=== PATIENT | female | born 1945 | race Caucasian/White ===

== ENCOUNTER → 2019-03-05 | Outpatient (CLI) | payer MEDICARE ==
--- NOTE | 2019-03-05 23:38 | BD ---
EXAMINATION TYPE: Axial Bone Density DATE OF EXAM: 03/05/2019 COMPARISON: 2001 CLINICAL HISTORY: 73-year-old female postmenopausal screening without HRT Height: 5'2 1/2 Weight: 165 FRAX RISK QUESTIONS: Secondary Osteoporosis: 3. Menopause before 45: y RISK FACTORS HISTORY OF: Postmenopausal woman: y MEDICATIONS: Thyroid Medications: Which medication: Synthroid How Lon years Additional Medications: Additional History: EXAM MEASUREMENTS: Bone mineral densitometry was performed using the [employer] System. Bone mineral density as measured about the Lumbar spine is: ----- L1-L4(G/cm2): 0.916 T Score Values are as follows: ----- L2: -2.6 ----- L3: -2.4 ----- L4: -1.7 ----- L1-L4: -2.2 Bone mineral density has: Decreased -7.0 % since study of: 11/23/2001 Bone mineral density about the R hip (g/cm2): 1.047 Bone mineral density about the L hip (g/cm2): 0.965 T Score values are as follows: -----R Neck: 0.1 -----L Neck: -0.5 -----R Total: 0.6 -----L Total: 0.9 Bone mineral density has: Decreased 3.3% since study of: 11/23/2001 IMPRESSION: Osteopenia (T Score between -2.5 and -1). There is slightly increased risk of fracture and the patient may be considered for treatment. Re-Screen 2-5 years. NOTE: T-SCORE=SD OF THE YOUNG ADULT MEAN.
--- NOTE | 2019-03-06 13:18 | MM ---
Reason for exam: screening (asymptomatic). Last mammogram was performed 4 years and 2 months ago. History: Patient is postmenopausal. Benign stereotactic core biopsy of the right breast, November 27, 2004. Took estrogen for 18 years. Physical Findings: A clinical breast exam by your physician is recommended on an annual basis and results should be correlated with mammographic findings. MG 3D Screening Mammo W/Cad Bilateral CC and MLO view(s) were taken. Prior study comparison: January 15, 2015, left breast MG work up mamm w CAD LT. January 08, 2015, bilateral MG screening mammo w CAD. The breast tissue is heterogeneously dense. This may lower the sensitivity of mammography. Right biopsy marker noted. No significant changes when compared with prior studies. ASSESSMENT: Negative, BI-RAD 1 RECOMMENDATION: Routine screening mammogram of both breasts in 1 year.
== END | disposition home or self-care (01) ==
LOC: RADMAMWWP 10:05
PROVIDERS: ATTEND Family Medicine
DX: Z12.31 Encounter for screening mammogram for malignant neoplasm of breast (principal); M85.80 Other specified disorders of bone density and structure, unspecified site; Z78.0 Asymptomatic menopausal state
CPT/HCPCS: 77063; 77067; 77080

== ENCOUNTER → 2019-10-19 | Outpatient (CLI) | payer MEDICARE ==
--- NOTE | 2019-10-23 11:07 | MR ---
EXAMINATION TYPE: MR knee RT wo con DATE OF EXAM: 10/19/2019 COMPARISON: None HISTORY: Rt knee pain, fall 1 yr ago TECHNIQUE: Multiplanar, multisequence images of the knee is performed without IV contrast. FINDINGS: MEDIAL MENISCUS: There is increased signal within the posterior horn medial meniscus. Communication w ith an articular surface is not evident. Anterior horn medial meniscus appears intact. LATERAL MENISCUS: Minimal increased signals in the anterior horn lateral meniscus. Posterior lateral meniscus appears intact. CRUCIATE LIGAMENTS: The anterior and posterior cruciate ligaments are intact and unremarkable. COLLATERAL LIGAMENTS: The medial collateral ligament and lateral collateral ligament complex are inta ct and unremarkable. EXTENSOR MECHANISM: Visualized quadriceps and patellar tendons are intact. EFFUSION: There is a large joint effusion present. POPLITEAL CYST: No popliteal/frost cyst. CARTILAGE: There is loss of the articular cartilage along the medial compartment. Subchondral changes may be present. Osteoarthritic degenerative change be considered. There is thinning of the articular cartilage of the lateral compartment. BONE MARROW SIGNAL: There is increased signal within the medial tibial plateau and medial femoral con dyle compatible with contusion. OTHER: No additional significant abnormality is appreciated. IMPRESSION: 1. Internal derangement posterior horn medial meniscus anterior horn lateral meniscus. 2. Contusion medial tibial plateau and medial femoral condyle. 3. Large joint effusion.
== END | disposition home or self-care (01) ==
LOC: RADMRIMAIN 16:49
PROVIDERS: ATTEND Orthopaedic Surgery Sports Medicine
DX: S80.01XA Contusion of right knee, initial encounter (principal); M17.0 Bilateral primary osteoarthritis of knee; E03.8 Other specified hypothyroidism; N18.9 Chronic kidney disease, unspecified

== ENCOUNTER → 2020-08-12 | Outpatient (CLI) | payer MEDICARE ==
[2020-08-12 11:37] LABS: HCT 42.1 % (34.0-46.0); HGB 13.2 gm/dL (11.4-16.0); MCHC 31.5 g/dL (31.0-37.0); Mean Platelet Volume 7.3; Platelet Count 258 k/uL (150-450); RBC 4.57 m/uL (3.80-5.40); WBC 5.2 k/uL (3.8-10.6)
[2020-08-12 12:26] LABS: Partial Thromboplastin Time 24.9 sec (22.0-30.0); Prothrombin Time 10.1 sec (9.0-12.0)
[2020-08-12 17:16] LABS: Hemoglobin A1C 5.9 % (4.0-6.0)
[2020-08-12 21:40] LABS: African American GFR (CKD) 57.3 (60.0-200.0); Anion Gap 9.8 mmol/L (4.00-12.00); BUN/Creat Ratio 22.73 Ratio (12.00-20.00); Calcium 10.4 mg/dL (8.7-10.3); Carbon Dioxide 26.2 mmol/L (21.6-31.8); Non-African American GFR(CKD) 49.4 (60.0-200.0); Potassium 5.4 mmol/L (3.5-5.5); Total Bilirubin 0.5 mg/dL (0.3-1.2); Total Protein 7.5 g/dL (6.2-8.2)
[2020-08-12 22:15] LABS: Albumin 5.2 g/dL (3.80-4.90); Albumin/Globulin Ratio 2.26 (1.60-3.17); Globulin 2.3 g/dL (1.6-3.3)
== END | disposition home or self-care (01) ==
LOC: LABWHC1 09:34
PROVIDERS: ATTEND Orthopaedic Surgery
DX: Z01.818 Encounter for other preprocedural examination (principal); D64.9 Anemia, unspecified; M19.90 Unspecified osteoarthritis, unspecified site
CPT/HCPCS: 36415; 80053; 83036; 85027; 85610; 85730; 86850; 86900; 86901; 87070; 93005

== ENCOUNTER 2020-11-19 10:48 | Emergency (ER) | payer MEDICARE ==
[2020-11-19] MEDS ORDERED: LIDOCAINE 1%-EPI 1:100,000 20 ML VIAL SQ STA (12:06)
--- NOTE | 2020-11-19 12:11 | ED ---
General Adult HPI - General Chief complaint: Fall Stated complaint: trip & fall/knee lac Time Seen by Provider: 11/19/20 11:59 Source: patient Mode of arrival: ambulatory Limitations: no limitations - History of Present Illness Initial comments: Dictation was produced using [employer] dictation software. please excuse any grammatical, word or spelling errors. This patient was cared for during a federal and state declared state of emergency secondary to Covid 19 Chief Complaint: 75-year-old female presents today with right knee laceration History of Present Illness: 75-year-old female she states that at 10:00a she was walking around her house to get her stepson. She flipped over a rug to have a stool ambulate around the house. She states that her left toe got caught under the rug while she was walking. She fell forward and landed directly on her right knee. Approximately 2 months ago patient had a partial knee replacement p erformed down at an outside hospital. She states that she's had a uncomplicated postoperative course. She states that her previous incision from the knee surgery split open. There was immediate bleeding. Patient states she is ambulatory. She is here today for suture placement. Patient refusing x-ray. Patient has no other complaints at this time. The ROS documented in this emergency department record has been reviewed and confirmed by me. Those systems with pertinent positive or negative responses have been documented in the HPI. All other systems are other negative and/or noncontributory. PHYSICAL EXAM: General Impression: Alert and oriented x3, not in acute distress HEENT: Normocephalic atraumatic, extra-ocular movements intact, pupils equal and reactive to light bilaterally, mucous membranes moist. Cardiovascular: Heart regular rate and rhythm Chest: Able to complete full sentences, no retractions, no tachypnea Abdomen: abdomen soft, non-tender, non-distended, no organomegaly Musculoskeletal: Pulses present and equal in all extremities, no peripheral edema Right knee. Vertical Linear laceration measuring approximately 12 cm over the right anterior knee. Laceration appears to be Singulair. No exposed bone.. No active hemorrhage at this time. It appears that the laceration was from those previous surgical incision. Knee flexion and extension are intact with no associated pain. Motor: no focal deficits noted Neurological: CN II-XII grossly intact, no focal motor or sensory deficits noted Skin: Intact with no visualized rashes Psych: Normal affect and mood ED course: 75-year-old female presents with knee laceration suffered after mechanical fall. Patient does not have any significant comorbidities. She is refusing x-ray initially however was convinced to get the x-rays by radiochemical technician. X-rays were reviewed showing no cold fractures.. Patient says that she could have underlying occult bone fracture however unlikely given that patient reports that she's been walking and having no gait complications. Signs upon arrival are within acceptable limits. Patient is well-appearing at bedside. Laceration appears to be single layer without any exposed fascia, bone or musculoskeletal structures. Wound irrigated and laceration repaired. Please see laceration note for further detail. Patient advised to follow-up with orthopedic surgeon who performed the procedure for outpatient management of laceration. return parameters discussed. Patient refused tetanus shot. She states that her last tetanus was more than 5 years ago. She understands that without this injection she has increased risks of getting a tetanus infection which could lead to significant medical issues. - Related Data Home Medications Medication Instructions Recorded Confirmed Ascorbic Acid [Vitamin C] 1,000 mg PO DAILY 05/27/17 05/27/17 Loratadine-Pseudoeph 10-240 mg 1 each PO DAILY 05/27/17 05/27/17 [Claritin-D 24 Hr] Turmeric Root Extract [Turmeric] 1,000 mg PO DAILY 05/27/17 05/27/17 Allergies Allergy/AdvReac Type Severity Reaction Status Date / Time Penicillins Allergy Rash/Hives Verified 11/19/20 11:52 Sulfa (Sulfonamide Allergy Rash/Hives Verified 11/19/20 11:52 Antibiotics) Review of Systems ROS Statement: Those systems with pertinent positive or pertinent negative responses have been documented in the HPI. ROS Other: All systems not noted in ROS Statement are negative. Past Medical History Past Medical History: Osteoarthritis (OA), Thyroid Disorder Additional Past Medical History / Comment(s): anemia, "atrophic left kidney since teen" History of Any Multi-Drug Resistant Organisms: None Reported Past Surgical History: Section, Hysterectomy, Joint Replacement Additional Past Surgical History / Comment(s): thyroidectomy, rt knee Past Anesthesia/Blood Transfusion Reactions: Motion Sickness Past Psychological History: No Psychological Hx Reported Smoking Status: Never smoker Past Alcohol Use History: Rare Past Drug Use History: None Reported - Past Family History Mother Family Medical History: Cancer, Deep Vein Thrombosis (DVT) Brother(s) Family Medical History: Cancer General Exam Limitations: no limitations Course Vital Signs 11/19/20 11:48 Temperature 99.1 F Pulse Rate 75 Respiratory 20 Rate Blood Pressure 158/78 O2 Sat by Pulse 98 Oximetry Procedures - Laceration Laceration #1 Consent Obtained: verbal consent Indication: laceration Site: lower extremity (right knee, anterior) Description: linear Depth: simple, single layer Anesthetic Used: lidocaine 1%, with epi Anesthesia Technique: local infiltration Pre-repair: wound explored, irrigated extensively Type of Sutures: nylon Size of Sutures: 3-0 Technique: simple, interrupted (7 sutures) Patient Tolerated Procedure: well Disposition Clinical Impression: Fall, Knee laceration Disposition: HOME SELF-CARE Condition: Good Instructions (If sedation given, give patient instructions): Fall Prevention for Older Adults (ED), Laceration (ED) Additional Instructions: Follow-up with your primary surgeon who performed the procedure for outpatient management of the laceration. Please seek immediate medical attention if he have any worsening pain, redness or swelling. Is patient prescribed a controlled substance at d/c from ED?: No Referrals: Jeffrey Tarango DO [Primary Care Provider] - 1-2 days Time of Disposition: 13:04
--- NOTE | 2020-11-19 13:18 | XR ---
EXAMINATION TYPE: XR knee complete RT DATE OF EXAM: 11/19/2020 CLINICAL HISTORY: pain TECHNIQUE: Three views of the right knee are obtained. COMPARISON: None. FINDINGS: Vague linear lucency noted lateral tibial plateau not confirmed on additional images may re flect osseous overlap. Correlate clinically with point tenderness. Medial hemiprosthesis is noted. Ti bial and femoral components are well seated. The overlying soft tissue appears unremarkable. IMPRESSION: Vague linear lucency noted lateral tibial plateau not confirmed on additional images may reflect osseous overlap. Correlate clinically with point tenderness.
[2020-11-19 13:25] VITALS: BP 151/66; PULSE 72; RESP 18; TEMP 98.1
== END 2020-11-19 13:25 | disposition home or self-care (01) ==
LOC: EC 10:48
DX: S81.011A Laceration without foreign body, right knee, initial encounter (principal); M19.90 Unspecified osteoarthritis, unspecified site; W01.0XXA Fall on same level from slipping, tripping and stumbling without subsequent striking against object, initial encounter; Y93.01 Activity, walking, marching and hiking; Z88.0 Allergy status to penicillin
CPT/HCPCS: 12004; 99284

== ENCOUNTER → 2021-09-10 | Outpatient (CLI) | payer MEDICARE ==
[2021-09-10 15:58] LABS: Basophils # (A) 0.06 X 10*3/uL (0.00-0.10); Basophils % (A) 1.1 %; Eosinophils # (A) 0.12 X 10*3/uL (0.04-0.35); Eosinophils % (A) 2.2 %; HCT 38.1 % (37.2-46.3); Lymphocytes # (A) 1.66 X 10*3/uL (0.90-5.00); Lymphocytes % (A) 29.8 %; MCH 29.6 pg (27.0-32.0); MCHC 31.5 g/dL (32.0-37.0); MCV 94.1 fL (80.0-97.0); Mean Platelet Volume 10.8 fL (9.5-12.2); Monocytes # (A) 0.48 X 10*3/uL (0.20-1.00); Monocytes % (A) 8.6 %; Neutrophils # (A) 3.23 X 10*3/uL (1.80-7.70); Neutrophils % (A) 57.9 %; Platelet Count 235 X 10*3/uL (140-440); RBC 4.05 X 10*6/uL (4.10-5.20); RDW 14.7 % (11.5-14.5); WBC 5.57 X 10*3/uL (4.50-10.00)
[2021-09-10 16:48] LABS: Chol/HDL Ratio 5.03 Ratio; Follicle Stimulating Hormone 30.8 mIU/mL; LDL Cholesterol,Calculated 140.9 mg/dL (0.0-131.0); Luteinizing Hormone 18.6 mIU/mL
[2021-09-10 17:05] LABS: C Reactive Protein, High Sens 0.609 mg/L (0.000-3.000)
[2021-09-10 17:38] LABS: Estradiol <5.0 pg/mL
[2021-09-10 18:08] LABS: ALT 30 U/L (8-44); AST 26 U/L (13-35); African American GFR (CKD) 72.5 (60.0-200.0); Albumin 4.6 g/dL (3.8-4.9); Albumin/Globulin Ratio 1.92 (1.60-3.17); Alkaline Phosphatase 68 U/L (41-126); BUN/Creat Ratio 21.22 Ratio (12.00-20.00); Blood Urea Nitrogen 19.1 mg/dL (9.0-27.0); Calcium 9.4 mg/dL (8.7-10.3); Carbon Dioxide 20.6 mmol/L (20.0-27.5); Chloride 105 mmol/L (96-109); Globulin 2.4 g/dL (1.6-3.3); Glucose 120 mg/dL (70-110); Non-African American GFR(CKD) 62.5 (60.0-200.0); Potassium 4.3 mmol/L (3.5-5.5); Sodium 138 mmol/L (135-145)
[2021-09-10 18:56] LABS: DHEA Sulfate 72.8 ug/dL (26.0-430.0)
[2021-09-10 20:23] LABS: Progesterone <0.05 ng/mL
== END | disposition home or self-care (01) ==
LOC: LABWHC1 08:48
PROVIDERS: ATTEND Internal Medicine
DX: E07.9 Disorder of thyroid, unspecified (principal); N95.1 Menopausal and female climacteric states; N94.3 Premenstrual tension syndrome; E34.9 Endocrine disorder, unspecified; E55.9 Vitamin D deficiency, unspecified
CPT/HCPCS: 36415; 80053; 80061; 82024; 82040; 82306; 82533; 82627; 82670; 83001; 83002; 83036; 83735; 84140; 84144; 84146; 84270; 84305; 84403; 84439; 84443; 84481; 85025; 86141

== ENCOUNTER → 2021-12-25 | Outpatient (CLI) | payer MEDICARE ==
[2021-12-25 14:30] LABS: Basophils # (A) 0.05 X 10*3/uL (0.00-0.10); Basophils % (A) 0.9 %; Eosinophils # (A) 0.13 X 10*3/uL (0.04-0.35); Eosinophils % (A) 2.4 %; HCT 41.8 % (37.2-46.3); HGB 13.1 g/dL (12.0-15.0); Immature Grans, Automated 0.4 %; Lymphocytes # (A) 1.78 X 10*3/uL (0.90-5.00); Lymphocytes % (A) 32.8 %; MCH 29.4 pg (27.0-32.0); MCHC 31.3 g/dL (32.0-37.0); MCV 93.9 fL (80.0-97.0); Mean Platelet Volume 10.6 fL (9.5-12.2); Monocytes # (A) 0.45 X 10*3/uL (0.20-1.00); Monocytes % (A) 8.3 %; NRBC Per 100 WBC 0 /100 WBCS (0.0-0.0); Neutrophils % (A) 55.2 %; Platelet Count 269 X 10*3/uL (140-440); RBC 4.45 X 10*6/uL (4.10-5.20); RDW 14.4 % (11.5-14.5); WBC 5.43 X 10*3/uL (4.50-10.00)
[2021-12-25 14:45] LABS: C Reactive Protein, High Sens 0.388 mg/L (0.000-3.000); Follicle Stimulating Hormone 16.3 mIU/mL; Luteinizing Hormone 13.2 mIU/mL
[2021-12-25 14:47] LABS: ALT 22 U/L (8-44); AST 24 U/L (13-35); African American GFR (CKD) 69.7 (60.0-200.0); Albumin 4.7 g/dL (3.8-4.9); Albumin/Globulin Ratio 1.44 (1.60-3.17); Alkaline Phosphatase 83 U/L (41-126); BUN/Creat Ratio 28.39 Ratio (12.00-20.00); Blood Urea Nitrogen 26.4 mg/dL (9.0-27.0); Calcium 9.7 mg/dL (8.7-10.3); Carbon Dioxide 22.2 mmol/L (20.0-27.5); Chloride 103 mmol/L (96-109); Chol/HDL Ratio 4.54 Ratio; Globulin 3.3 g/dL (1.6-3.3); Glucose 105 mg/dL (70-110); Non-African American GFR(CKD) 60.1 (60.0-200.0); Potassium 4.5 mmol/L (3.5-5.5); Sodium 137 mmol/L (135-145)
[2021-12-25 17:09] LABS: Estradiol 20.3 pg/mL
[2021-12-25 23:22] LABS: ACTH 14.9 pg/mL (0.00-45.99)
== END | disposition home or self-care (01) ==
LOC: LABWHC1 08:44
PROVIDERS: ATTEND Internal Medicine
DX: E07.9 Disorder of thyroid, unspecified (principal); N95.1 Menopausal and female climacteric states; N94.3 Premenstrual tension syndrome; E34.9 Endocrine disorder, unspecified; E55.9 Vitamin D deficiency, unspecified
CPT/HCPCS: 36415; 80053; 80061; 82024; 82040; 82306; 82533; 82627; 82670; 83001; 83002; 83036; 83735; 84140; 84144; 84146; 84270; 84305; 84403; 84439; 84443; 84481; 85025; 86141

== ENCOUNTER → 2022-06-28 | Outpatient (CLI) | payer MEDICARE ==
[2022-06-28 23:07] LABS: T4, Free (Free Thyroxine) 0.88 ng/dL (0.800-1.800)
== END | disposition home or self-care (01) ==
LOC: LABWHC1 13:16
PROVIDERS: ATTEND Family Medicine
DX: Z00.00 Encounter for general adult medical examination without abnormal findings (principal); E03.9 Hypothyroidism, unspecified; R73.9 Hyperglycemia, unspecified
CPT/HCPCS: 36415; 82626; 83036; 84140; 84439; 84443